=== PATIENT | male | born 1985 | race Two or more races ===

== ENCOUNTER 2020-07-26 13:11 | Outpatient (CLI) | payer MEDICAID ==
--- NOTE | 2020-07-26 15:29 | Consultation ---
DATE OF CONSULTATION: 07/26/2020 GASTROENTEROLOGY CONSULTATION CONSULTING PHYSICIAN: Oscar Dutton MD CHIEF COMPLAINT: Right upper quadrant abdominal pain. HISTORY OF PRESENT ILLNESS: This is a very pleasant 35-year-old male with past medical history of fatty liver, who complained of right upper quadrant abdominal pain, feeling some bloated and some gassiness that is usually worse after having greasy food. No nausea. No vomiting. No dysphagia. No odynophagia. No melena. No hematochezia. No diarrhea. No constipation. PAST MEDICAL HISTORY: Fatty liver. PAST SURGICAL HISTORY: None. MEDICATIONS: Vitamins. ALLERGIES: No known drug allergies. FAMILY HISTORY: No family history of GI malignancies. SOCIAL HISTORY: Drinks alcohol occasionally. He also uses marijuana occasionally. REVIEW OF SYSTEMS: A 10-point review of systems was performed and pertinent positives in HPI. PHYSICAL EXAMINATION: VITAL SIGNS: Temperature 96.9, blood pressure 149/84, pulse 101, respirations 20. HEENT: Normocephalic and atraumatic. Sclerae are anicteric. NECK: Supple. No evidence of obvious lymphadenopathy. CARDIOVASCULAR: Regular rate and rhythm. Plus S1, S2. LUNGS: Clear to auscultation bilaterally. ABDOMEN: Positive bowel sounds. Soft. Minimal tenderness to palpation in the right upper quadrant. No rebound. No guarding. No peritoneal sign. EXTREMITIES: No cyanosis. No clubbing. No edema. ASSESSMENT: This is a 35-year-old male with right upper quadrant abdominal pain, history of fatty liver. Differential diagnoses would be gallstones, worsening of fatty liver, gastritis, SIBO. PLAN: Order abdominal ultrasound. Start the patient on Align. Return to clinic after above. Oscar Dutton M.D. DR: Kelli JOB#: [id number] CC:
== END 2020-07-26 15:11 | disposition home or self-care (01) ==
LOC: PAN 13:11
DX: R10.11 Right upper quadrant pain (principal); R14.0 Abdominal distension (gaseous)
CPT/HCPCS: 99203